=== PATIENT | male | born 1985 | race Caucasian/White ===

== ENCOUNTER 2020-09-27 13:19 | Emergency (ER) | payer MEDICARE, MEDICAID, SELFPAY ==
[2020-09-27 13:30] VITALS: BP 133/92; PULSE 74; RESP 16; TEMP 36.4; O2SAT 99
--- NOTE | 2020-09-27 13:40 | ED.GENADULT ---
HPI - General Adult General Chief complaint: Urogenital-Male Stated complaint: Possible UTI pain in Private area Time Seen by Provider: 09/27/20 13:40 Source: patient, family (patient request cousin Terri come to room after physical exam) and RN notes reviewed Mode of arrival: ambulatory Limitations: no limitations History of Present Illness HPI narrative: 35-year-old male present with ?complaints of dysuria for the ?past 2 days. Saul reports increasing symptoms over the past 24 hours without discharge or swelling to genital area. ?Dysuria consists of burning, decreased urine, frequency, and urgency.? No treatment.? Denies fever or chills.? Denies nausea, vomiting, and abdominal pain. ?Tolerating po intake well. No significant genital pain.? No genital discharge.? No concerns for STDs. Denies being sexually active or inserting anything into ?genital area. ?No flank pain.? Exacerbating factors urinating.? Denies hematuria or genital bleeding. Remains active. ?The patient reports he has not been diagnosed with COVID-19. The patient reports he is not waiting for the results of a COVID-19 lab test. ?The patient reports he does not have chills, weakness, or fatigue. ?The patient reports he does not have a new or worsening cough or shortness of breath. ?Denies chest pain. The patient reports he does not have any rhinorrhea, congestion, loss of taste or smell, sore throat, and diarrhea. Denies recent traveling. ?Denies concerns for COVID-19 or exposures being home with limited outdoor exposure. ?At this time, the patient is not suspected of having COVID-19. Some parts of this dictation were generated by voice recognition software and may contain typographical and/or grammatical inaccuracies. Related Data Home Medications Medication Instructions Recorded Confirmed dextroamphetamine-amphetamine 20 mg PO DAILY 09/27/20 09/27/20 [Adderall XR] Allergies Allergy/AdvReac Type Severity Reaction Status Date / Time No Known Allergies Allergy Verified 09/27/20 13:39 Review of Systems Review of Systems: Narrative: CONSTITUTIONAL: Denies fever, chills, sweats. EYES: Denies visual changes, redness, discharge. ENT: Denies rhinorrhea, congestion, sore throat, otalgia. CARDIOVASCULAR: Denies chest pain, palpitations, edema. RESPIRATORY: Denies dyspnea, wheezing, cough. GASTROINTESTINAL: Denies abdominal pain, nausea, vomiting, diarrhea. GENITOURINARY: Complains of dysuria (frequency, burning, small amount, and urgency), Denies hematuria, abnormal discharge. SKIN: Denies rash or itching. MUSCULOSKELETAL: Denies acute back pain, joint pain, or myalgia. NEUROLOGIC: Denies numbness or focal weakness. PSYCHIATRIC: Denies anxiety or depression. All other systems reviewed are negative, except as documented in HPI and below. 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 Surgical History Surgical History (Updated 09/27/20 @ 14:13 by XIOMY Pardo) History of hernia surgery Bilateral groin Family History Family History (Updated 09/27/20 @ 14:14 by XIOMY Pardo) Father Medical history unknown Mother Kidney disease Social History Social History (Updated 09/27/20 @ 14:15 by XIOMY Pardo) Smoking status: Never smoker Tobacco type: cigarettes Second hand tobacco smoke exposure: No Alcohol intake: never Substance use: never Substance use type: does not use Living arrangements: with family Occupation/Education: unemployed Gender identity (if verbalized by the patient): Male Comments At time of signature, agree with the nurse past medical, surgical, social, and family history.? There is no relevant family history pertinent to the presenting complaint. Exam Narrativ
== END 2020-09-27 14:12 | disposition home or self-care (01) ==
PROVIDERS: Emergency Provider Nurse Practitioner Family; PCP Nurse Practitioner Family
DX: N45.1 Epididymitis (principal); F84.0 Autistic disorder; F90.9 Attention-deficit hyperactivity disorder, unspecified type; E66.9 Obesity, unspecified; Z68.43 Body mass index [BMI] 50.0-59.9, adult
CPT/HCPCS: 81003; 99213; G0463

== ENCOUNTER 2021-11-24 00:17 | Emergency (ER) | payer OTHER, SELFPAY ==
[2021-11-24] VITALS (23 sets, daily range): BP systolic 107–149; BP diastolic 59–110; PULSE 84–88; RESP 20; TEMP 36.6; O2SAT 97–100
--- NOTE | ~2021-11-24 | CT_ITS ---
EXAMINATION: CT abdomen pelvis wo con DATE: 11/24/2021 01:14 INDICATION: Hematuria. Penile pain. TECHNIQUE: Computed tomography (CT) of the abdomen and pelvis was performed without intravenous contr ast. Automated exposure control and iterative reconstruction technique were employed. The dose-length product was 1738.81 mGy-cm. COMPARISON: None. FINDINGS: The visualized portions of the lung bases demonstrate minimal atelectasis. No pleural effus ion. The heart size is normal. No pericardial effusion. There is diffuse hepatic steatosis. The gallb ladder, spleen, pancreas, adrenal glands, and left kidney are normal. There is a 10 mm cyst in right kidney. There is no urolithiasis. There are no dilated loops of bowel. The appendix is normal. There are no pathologically enlarged lymph nodes. There is no free intraperitoneal fluid. There is mild tho racolumbar spondylosis. IMPRESSION: 1. No urolithiasis. 2. Diffuse hepatic steatosis. Reviewed, dictated and finalized at location A.
--- NOTE | 2021-11-24 00:47 | ED.GENADULT ---
HPI - General Adult General Chief complaint: Urogenital-Male Stated complaint: hematuria Time Seen by Provider: 11/24/21 00:20 History of Present Illness HPI narrative: 36-year-old male presenting to the emergency department for evaluation of hematuria and pain at the tip of his penis. Patient states that the bleeding occurred tonight. Patient denies any prior history of kidney stones. Patient denies any associated nausea or vomiting. Patient denies any associated abdominal pain or flank pain. Patient does have a prior history of urinary tract infection but was unsure of the underlying etiology. Patient denies any self injury denies inserting anything into his penis. Related Data Home Medications Medication Instructions Recorded Confirmed dextroamphetamine-amphetamine ER 20 mg PO DAILY 09/27/20 09/27/20 20 mg 24hr capsule,extend release (Adderall XR) Allergies Allergy/AdvReac Type Severity Reaction Status Date / Time No Known Allergies Allergy Verified 11/24/21 00:24 Review of Systems Review of Systems: CONSTITUTIONAL: Denies fever, chills, or sweats. EYES: Denies visual changes, redness, or discharge. ENT: Denies rhinorrhea, congestion, sore throat, or otalgia. CARDIOVASCULAR: Denies chest pain, palpitations, or edema. RESPIRATORY: Denies cough or dyspnea. GASTROINTESTINAL: Denies abdominal pain, nausea, vomiting, or diarrhea. GENITOURINARY: See HPI SKIN: Denies rash or itching. MUSCULOSKELETAL: Denies back pain, joint pain, or myalgia. NEUROLOGIC: Denies headache, numbness, or weakness. 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 Surgical History Surgical History (Updated 09/27/20 @ 14:13 by XIOMY Pardo) History of hernia surgery Bilateral groin Family History Family History (Updated 09/27/20 @ 14:14 by XIOMY Pardo) Father Medical history unknown Mother Kidney disease Social History Social History (Updated 09/27/20 @ 14:15 by XIOMY Pardo) Smoking status: Never smoker Tobacco type: cigarettes Second hand tobacco smoke exposure: No Alcohol intake: never Substance use: never Substance use type: does not use Gender identity (if verbalized by the patient): Male Exam Narrative: APPEARANCE: Well appearing, no pain, no distress, well-nourished. HEAD: normocephalic, atraumatic. EYES: PERRLA/EOMI, conjunctivae clear. NOSE: Normal no drainage NECK: Supple. No adenopathy, no masses. RESPIRATORY: Airway patent, respirations nonlabored. Clear to auscultation bilaterally, no rales, rhonchi, wheezing. CARDIOVASCULAR: Regular rate and rhythm without murmurs rubs or gallops. ABDOMINAL: Soft, nontender, nondistended, normal bowel sounds MUSCULOSKELETAL: Moves all extremities. Strength/ROM intact, No edema, No calf tenderness. NEURO: Alert. Cranial nerves II through XII intact. Grossly intact Genitourinary: Normal-appearing penis with no evidence of injury. No tenderness to palpation. SKIN: Warm, dry. Normal Color PSYCHIATRIC: Normal affect/mood. Course Course Emergency Course: CT scan showed no acute abnormality. Urine was consistent with a urinary tract infection. Patient was treated with antibiotics emergency department and discharged to home. Patient and family are comfortable with the plan for discharge and follow-up. Vital Signs Vital signs: Vital Signs Temperature 97.9 F 11/24/21 00:21 Pulse Rate 84 11/24/21 00:21 Respiratory Rate 20 11/24/21 00:21 Blood Pressure 138/91 H 11/24/21 00:21 Pulse Oximetry 100 11/24/21 00:21 Oxygen Delivery Room Air 11/24/21 00:21 Temperature 97.9 F 11/24/21 00:21 Pulse Rate 88 11/24/21 02:46 Respiratory Rate 11/24/21 03:31 Blood Pressure 113/
[2021-11-24 00:49] LABS: Add Urine Microscopic? YES; Appearance Urine Cloudy (Clear); Bilirubin Urine 3+ (Negative); Blood Urine 3+ (Negative); Color Urine Brown (Yellow); Glucose Urine UA Trace mg/dL (Negative); Ketones Urine 1+ mg/dL (Negative); Leukocyte Esterase Ur 3+ LEU/UL (Negative); Nitrate Urine Positive (Negative); Protein Urine 3+ mg/dL (Negative); Urobilinogen Urine >=8.0 mg/dL (<2.0)
[2021-11-24 01:04] LABS: RBC Urine >75 /hpf (0-2); Squamous Epithelial Cell Urine Many /hpf (Few); WBC Urine >75 /hpf
[2021-11-24 01:08] LABS: Bacteria Urine 2+ /hpf
[2021-11-24 01:13] LABS: Basophils Absolute Auto 0.1 K/mm3 (0.0-0.1); Basophils Percent Auto 0.5 % (0.2-1.2); Eosinophils Absolute Auto 0.2 K/mm3 (0-0.3); Eosinophils Percent Auto 1.3 % (0-4.4); Hematocrit 40.4 % (42.0-52.0); Hemoglobin 12.6 g/dL (14.0-18.0); Immature Granulocyte Absolute 0.07 K/mm3 (0.00-0.031); Immature Granulocyte Percent A 0.4 % (0-0.5); Lymphocytes Absolute Auto 3.13 K/mm3 (0.9-3.2); Lymphocytes Percent Auto 19.1 % (18.3-44.2); Mean Corpuscular HGB Conc 31.2 g/dl (32-36); Mean Corpuscular Hemoglobin 26.5 pg (26-34); Mean Corpuscular Volume 84.9 fl (80-100); Mean Platelet Volume 9.9 fl (7.4-10.4); Monocytes Absolute Auto 1.2 K/mm3 (0.1-0.6); Monocytes Percent Auto 7.4 % (2.6-8.5); Neutrophils Absolute Auto 11.7 K/mm3 (1.3-6.7); Neutrophils Percent Auto 71.3 % (45.5-73.1); Platelet Count Result 498 k/mm3 (150-375); Red Blood Count 4.76 M/mm3 (4.6-6.20); Red Cell Distribution Width 14.3 % (11.5-14.5); White Blood Count 16.4 K/mm3 (4.5-10.0)
[2021-11-24 01:30] LABS: INR 1.1; Prothrombin Time 13.8 Seconds (11.1-14.7)
[2021-11-24 01:31] LABS: Partial Thromboplastin Time 31.5 SECONDS (22.3-36.8)
[2021-11-24] MEDS: SODIUM CHLORIDE 0.9% IV 1,000 ML 999 ML IV CONT (01:55)
[2021-11-24 02:29] LABS: Alanine Aminotransferase 85 U/L (6-50); Albumin Level 4.2 g/dL (3.5-5.1); Alkaline Phosphatase 107 U/L (38-126); Anion Gap 10 mmol/L (8-16); Aspartate Amino Transferase 41 U/L (17-59); Bilirubin,Total 0.3 mg/dL (0.2-1.3); Blood Urea Nitrogen 16 mg/dL (9-20); Calcium 8.5 mg/dL (8.4-10.2); Carbon Dioxide 25 mmol/L (22-30); Chloride 104 mmol/L (98-107); Estimated CRCL calculation 177 ml/min; Estimated Glomerular Filt Rate > 60; Glucose 112 mg/dL (65-110); Potassium 4.4 mmol/L (3.4-5.0); Sodium 139 mmol/L (137-145)
[2021-11-24] MEDS: PHENAZOPYRIDINE HCL 100 MG TABLET 200 MG PO (03:50)
== END 2021-11-24 03:58 | disposition home or self-care (01) ==
PROVIDERS: Emergency Provider Emergency Medicine; PCP Nurse Practitioner Family
DX: N39.0 Urinary tract infection, site not specified (principal); F90.9 Attention-deficit hyperactivity disorder, unspecified type; F84.0 Autistic disorder; E66.9 Obesity, unspecified; Z68.42 Body mass index [BMI] 45.0-49.9, adult; K76.0 Fatty (change of) liver, not elsewhere classified
CPT/HCPCS: 36415; 74176; 80053; 81001; 85025; 85610; 85730; 87077; 87086; 87186; 96361; 96365; 99284; A9270; J0696; J7030